=== PATIENT | female | born 1965 | race African-American/Black ===

== ENCOUNTER 2018-10-07 08:19 | Emergency (ER) | payer BC | END 2018-10-07 09:33 | disposition home or self-care (01) | LOC: JER 08:19 → JERFT 09:33 ==

== ENCOUNTER 2022-09-17 01:28 | Emergency (ER) | payer BC ==
[2022-09-17 01:39] VITALS: BP 166/92; PULSE 79; RESP 22; TEMP 98; BMI 53.1
[2022-09-17] MEDS ORDERED: ACETAMINOPHEN 1000 MG/100 ML BAG IVPB ONE (02:02)
[2022-09-17] MEDS ORDERED: MAG HYDROX/AL HYDROX/SIMETH 30 ML UNIT-DOSE CUP PO ONE (02:02)
[2022-09-17] MEDS ORDERED: MAG HYDROX/AL HYDROX/SIMETH 30 ML UNIT-DOSE CUP ONE (02:09)
[2022-09-17] MEDS ORDERED: ACETAMINOPHEN INJECTION 100 ML IVPB ONE (02:09)
[2022-09-17 02:43] LABS: BASO % 1.6 % (0-2.0); EOS % 2.7 % (0-4.5); HEMATOCRIT 35.5 % (32.4-45.2); HEMOGLOBIN 11.3 GM/dL (10.7-15.3); LYMPH % 18.6 % (8-40); MCH 20.5 pg (25.7-33.7); MCHC 31.8 g/dl (32.0-36.0); MEAN CELL VOLUME 64.6 fl (80-96); MEAN PLT VOLUME 9.3 fl (7.5-11.1); MONO % 10.1 % (3.8-10.2); PLATELET COUNT 272 10^3/uL (134-434); RDW 15.6 % (11.6-15.6); WHITE BLOOD COUNT 11.7 K/mm3 (4.0-10.0)
[2022-09-17 02:54] LABS: INR 1.08 (0.83-1.09); PROTHROMBIN TIME (PATIENT) 12.5 SEC (9.7-13.0)
[2022-09-17 02:57] LABS: ACTIVATED PTT 28.5 SECONDS (25.2-36.5)
[2022-09-17 03:07] LABS: POTASSIUM 4.4 mmol/L (3.5-5.1)
[2022-09-17 03:10] LABS: ALBUMIN 3.7 g/dl (3.4-5.0); BLOOD UREA NITROGEN 11.9 mg/dL (7-18); CALCIUM 9.1 mg/dL (8.5-10.1); MAGNESIUM 2.1 mg/dL (1.8-2.4)
[2022-09-17 03:13] LABS: CREATININE 0.6 mg/dL (0.55-1.3)
[2022-09-17 03:15] LABS: BILIRUBIN,TOTAL 0.3 mg/dL (0.2-1); TOT PROT 8.3 g/dl (6.4-8.2)
[2022-09-17 03:19] LABS: N-TERMINAL BNP 77.8 pg/ml (5-125)
[2022-09-17] MEDS: ASPIRIN 81 MG CHEWABLE TABLETS PO ONE ×2 (05:45→05:49)
[2022-09-17] MEDS ORDERED: ASPIRIN 81 MG CHEWABLE TABLETS ONE (05:47)
[2022-09-17 05:56] LABS: ANISOCYTOSIS 3+; MACROCYTOSIS 0; ROULEAU 1+; TEAR DROP CELLS 1+
== END 2022-09-17 06:17 | disposition home or self-care (01) ==
LOC: JER 01:28
PROC: 3E033NZ Introduction of Analgesics, Hypnotics, Sedatives into Peripheral Vein, Percutaneous Approach (ICD-10-PCS; principal; 2022-09-17)
DX: R06.02 Shortness of breath (principal); R07.89 Other chest pain; J18.9 Pneumonia, unspecified organism
CPT/HCPCS: 36415; 71045-TC-FY; 71275-TC; 80053; 83690; 83735; 83880; 84484; 85025; 85379; 85610; 85730; 93005; 93010; 99285-25; Q9967